=== PATIENT | female | born 1960 | race Caucasian/White ===

== ENCOUNTER 2017-10-14 15:09 | Emergency (ER) | payer OTHER ==
--- NOTE | 2017-10-14 15:48 | EDM.PDOC ---
ED HPI GENERAL MEDICAL PROBLEM - General Chief Complaint: Eye Problems Stated Complaint: RIGHT EYE POKED WITH STICK Time Seen by Provider: 10/14/17 15:28 Source of Information: Reports: Patient History Limitations: Reports: No Limitations - History of Present Illness INITIAL COMMENTS - FREE TEXT/NARRATIVE: Patient is a 57-year-old female presents ED complaining of being poked in the medial aspect of the right eye causing bleeding within the eye. Patient states there is no pain. No vision changes. She was wearing contacts at the time. Currently wearing glasses. There has been no bleeding from the eye. No excessive tearing. No foreign object removed. She offers no additional complaints - Related Data Allergies Allergy/AdvReac Type Severity Reaction Status Date / Time Sulfa (Sulfonamide Allergy Rash Verified 10/14/17 15:16 Antibiotics) Home Meds: Home Meds Escitalopram [Lexapro] 10 mg PO DAILY 10/14/17 [History] Montelukast [Singulair] 10 mg PO BEDTIME 10/14/17 [History] Pantoprazole Sodium [Protonix] 20 mg PO DAILY 10/14/17 [History] atorvaSTATin Calcium [Atorvastatin Calcium] 20 mg PO DAILY 10/14/17 [History] Past Medical History - Past Health History Medical/Surgical History: Denies Medical/Surgical History Cardiovascular History: Reports: Hypertension Respiratory History: Reports: Asthma Gastrointestinal History: Reports: GERD Social & Family History - Tobacco Use Smoking Status *Q: Never Smoker - Caffeine Use Caffeine Use: Reports: Coffee - Recreational Drug Use Recreational Drug Use: No ED ROS GENERAL - Review of Systems Review Of Systems: ROS reveals no pertinent complaints other than HPI. ED EXAM GENERAL W FULL EYE - Physical Exam Exam: See Below Exam Limited By: No Limitations General Appearance: Alert, WD/WN, No Apparent Distress Eye Exam: Bilateral Eye: EOMI, PERRL, Other (Subconjunctival hemorrhage to the medial aspect of the right eye with no active bleeding present. No foreign objects present.) Eyelids: Right: Lid Everted for Exam, Bilateral: Normal Appearance Conjunctiva & Sclera: Right: Subconjuctival Hemorrhage Extraocular Movements: Bilateral: Intact Pupillary Size: Bilateral: 4 mm Pupillary Reaction: Bilateral: Brisk Anterior Chamber: Right: Normal Appearance Comments: Patient refuses to have slit lamp examination. 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 Nose: Normal Inspection Throat/Mouth: Normal Voice, No Airway Compromise Neck: Normal Inspection, Supple Respiratory/Chest: No Respiratory Distress, No Accessory Muscle Use Cardiovascular: Normal Peripheral Pulses Neurological: Alert, Oriented, CN II-XII Intact, Normal Cognition Psychiatric: Normal Affect, Normal Mood Skin Exam: Warm, Dry, Intact, Normal Color Course - Vital Signs Last Recorded V/S: Last Vital Signs Temp 97.2 F 10/14/17 15:19 Pulse 85 10/14/17 15:19 Resp 15 10/14/17 15:19 BP 145/96 H 10/14/17 15:19 Pulse Ox 94 L 10/14/17 15:19 - Orders/Labs/Meds Orders: Active Orders 24 hr Category Date Time Status Vaccines to be Administered [RC] PER UNIT ROUTINE Care 10/14/17 16:34 Active Meds: Medications Discontinued Medications Generic Name Dose Route Start Last Admin Trade Name Freq PRN Reason Stop Dose Admin Diphtheria/Tetanus/Acell Pertussis 0.5 ml 10/14/17 16:34 10/14/17 16:40 Adacel IM 10/14/17 16:35 0.5 ml .ONCE ONE Administration - Re-Assessments/Exams Free Text/Narrative Re-Assessment/Exam: Visual acuity testing will be obtained. Patient is refusing slit lamp examination. Offered antibiotic eye drops. Concerned for conjunctiva laceration. She will see her eye doctor tomorrow. When visual acuity test has been completed will discharge patient home with instructions as documented. 10/14/17 16:36 Visual acuity 20/30. Patient ready be discharged home. Departure - Departure Time of Disposition: 16:36 Disposition: Home, Self-Care 01 Condition: Good Clinical Impression: Subconjunctival hemorrhage of right eye, Traumatic conjunctivitis Right eye trauma Qualifiers: Encounter type: initial encounter Qualified Code(s): S05.91XA - Unspecified injury of right eye and orbit, initial encounter - Discharge Information Instructions: Subconjunctival Hemorrhage Referrals: Dolores Lawson [employer] [Primary Care Provider] - Forms: ED Department Discharge Additional Instructions: As discussed follow-up with your eye doctor tomorrow for reevaluation. Return to ED if you develop any new or worsening symptoms. Do not rub the eye. - My Orders Last 24 Hours: My Active Orders 11/26/17 16:34 Vaccines to be Administered [RC] PER UNIT ROUTINE - Assessment/Plan Last 24 Hours: My Active Orders 10/14/17 16:34 Vaccines to be Administered [RC] PER UNIT ROUTINE
[2017-10-14] MEDS ORDERED: Diphtheria,Pertussis(Acell),Tetanus Vaccine 0.5 ML SDV IM ONE (16:34)
== END 2017-10-14 16:45 | disposition home or self-care (01) ==
LOC: JD.ED 15:09
DX: S05.91XA Unspecified injury of right eye and orbit, initial encounter (principal); H11.31 Conjunctival hemorrhage, right eye; H10.89 Other conjunctivitis; I10 Essential (primary) hypertension; Z88.2 Allergy status to sulfonamides; Z79.899 Other long term (current) drug therapy; Z23 Encounter for immunization; W22.8XXA Striking against or struck by other objects, initial encounter
CPT/HCPCS: 90471; 90715; 99282; 99283-25

== ENCOUNTER 2023-12-24 21:53 | Emergency (ER) | payer BC, OTHER ==
[2023-12-24 22:14] LABS: APPEARANCE,URINE SLT CLOUDY (Clear); BILIRUBIN,URINE NEGATIVE (Negative); COLOR,URINE LIGHT YELLOW (Yellow); GLUCOSE,URINE NEGATIVE (Negative); KETONES,URINE NEGATIVE (Negative); LEUKOCYTE ESTERASE,URINE 3+ (Negative); NITRITE,URINE NEGATIVE (Negative); OCCULT BLOOD,URINE 2+ (Negative); PROTEIN,URINE NEGATIVE (Negative); UROBILINOGEN,URINE 0.2 (0.2-1.0)
[2023-12-24 22:36] LABS: BACTERIA,URINE FEW /hpf (FEW); MUCUS,URINE FEW /hpf (FEW); SQUAMOUS EPITHELIAL CELLS,UR 0-5 /hpf (0-5); WBC,URINE 40-50 /hpf (0-5)
[2023-12-24] MEDS: Cefdinir 300 MG Cap PO ONE (22:44)
[2023-12-24] MEDS: Phenazopyridine 95 MG Tab PO ONE (22:44)
== END 2023-12-24 22:49 | disposition home or self-care (01) ==
LOC: JD.ED 21:53
DX: N30.01 Acute cystitis with hematuria (principal); I10 Essential (primary) hypertension; K21.9 Gastro-esophageal reflux disease without esophagitis; J45.909 Unspecified asthma, uncomplicated; Z79.899 Other long term (current) drug therapy; Z88.2 Allergy status to sulfonamides
CPT/HCPCS: 81001; 87086; 87088; 87186; 99283; A9270; 99284

== ENCOUNTER 2024-07-31 08:39 | Day surgery (SDC) | payer BC ==
[2024-07-31] MEDS: Lactated Ringers 1,000 ML IV SCH (08:45)
[2024-07-31] MEDS ORDERED: Propofol 200 MG/20 ML SDV ONE (09:18)
[2024-07-31] MEDS ORDERED: Lidocaine 1% PF 2 ML SDV ONE ×2 (09:19)
[2024-07-31] MEDS ORDERED: Lidocaine 1% 4 ML ONE (09:19)
== END 2024-07-31 10:58 | disposition home or self-care (01) ==
LOC: JD.SDS 08:39
PROVIDERS: ATTEND Surgery
DX: Z12.11 Encounter for screening for malignant neoplasm of colon (principal); R01.1 Cardiac murmur, unspecified; I10 Essential (primary) hypertension; J45.909 Unspecified asthma, uncomplicated; K21.9 Gastro-esophageal reflux disease without esophagitis; Z79.82 Long term (current) use of aspirin; Z79.899 Other long term (current) drug therapy; Z88.2 Allergy status to sulfonamides
CPT/HCPCS: J2704; J3490; J7120